=== PATIENT | female | born 1945 | race Caucasian/White ===

== ENCOUNTER 2016-12-12 18:40 | Emergency (ER) | payer OTHER, MEDICARE ==
[2016-12-12 19:12] VITALS: RESP 18; TEMP 97.9
--- NOTE | 2016-12-12 19:28 | EDPHY ---
H & P Stated Complaint: blurry vision Time Seen by Provider: 12/12/16 18:59 - Personal History Current Tetanus/Diphtheria Vaccine: Yes Current Tetanus Diphtheria and Acellular Pertussis (TDAP): Yes - Medical/Surgical History Hx Asthma: No Hx Chronic Respiratory Disease: No Hx Diabetes: No Hx Cardiac Disease: No Hx Renal Disease: No Hx Cirrhosis: No Hx Alcoholism: No Hx HIV/AIDS: No Hx Splenectomy or Spleen Trauma: No Other PMH: retinal lental fibroaplasia, cryotherapy of both eyes, rentinal detatchment in 1978, Broken left arm in May - Social History Smoking Status: Never smoked Constitutional: Initial Vital Signs Temperature (C) 36.6 C 12/12/16 19:02 Heart Rate 69 12/12/16 19:02 Respiratory Rate 18 12/12/16 19:02 Blood Pressure 167/89 H 12/12/16 19:02 O2 Sat (%) 92 12/12/16 19:02 O2 Delivery Mode Room Air Allergies/Adverse Reactions: No Known Allergies Allergy (Unverified 12/12/16 18:59) Home Medications: Medication Instructions Recorded NK [No Known Home Meds] 12/12/16 Medical Decision Making ED Course/Re-evaluation: CHIEF COMPLAINT: Vision loss in right eye HISTORY OF PRESENT ILLNESS: 71-year-old female who has a 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 Her right eye is 20/ 25 but over the last 24-36 hours she is losing significant vision and eye and she is having difficulty reading. She denies any headache. She denies any other symptoms. She denies any trauma. She denies any headache. She denies any prior history of this type progression. She just flew in from [place]. She does not have any local cloth opener hand. She spoke to overedge sewer in [place] who recommended she get seen. She came here to the emergency department realize in that there is probably not much that we can do but the very least we could get her evaluated by Ophthalmology [facility]. REVIEW OF SYSTEMS: A 10 point review of systems was performed and is negative with the exception of the elements mentioned in the history of present illness. PHYSICAL EXAM: Visual Acuity: Noted from Nurse's notes. Pupils: PERRLA, EOMI, no nystagmus, no trauma, no injection. Lids: No edema or swelling Skin: No proptosis, no periorbital erythema or swelling, no vesicles Conjunctivae: Not injected, not icteric, no discharge Cornea: Exam with slit lamp and fluorescein shows Anterior chamber: Normal, no hyphema or hypopyon Posterior Chamber: No papilledema or hemorrhages. Past medical history: Retrolental fibroplasia Past surgical history: Noncontributory Family history: Noncontributory Social history: , lives in [place], is a surgeon, does not abuse tobacco drugs or alcohol, just flew in to visit her son over the last couple hours DIFFERENTIAL DIAGNOSIS: Includes but is not limited to stroke, TIA, progression of her chronic retinal fibrosis, other causes of limited vision MEDICAL DECISION MAKING: I spoke with Dr. Nick Burnham from Ophthalmology. He is in agreement that there is unfortunately nothing that can be done tonight especially in the emergency department. He is to see this patient in his office with his equipment to figure out how best to help her. She will be seen 1st thing tomorrow morning at 8:30 a.m. which is about [address] Burnham does not believe he needs to see her this evening but if she worsens she will have his phone number. 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 Nick Burnham office at 8:30 a.m. tomorrow morning Referrals: NONE *PRIMARY CARE P,. [Primary Care Provider] - As per Instructions Nick Burnham MD [Medical Doctor] - 1 day without fail
[2016-12-12 19:44] VITALS: BP 142/82; PULSE 85; O2SAT 95
== END 2016-12-12 19:44 | disposition home or self-care (01) ==
LOC: CED 18:40
DX: H35.1 Retinopathy of prematurity (principal)